=== PATIENT | female | born 1990 | race Caucasian/White ===

== ENCOUNTER 2022-05-20 19:04 | Emergency (ER) | payer MEDICAID ==
[~2022-05-20] VITALS: Ht 165.1 cm; Wt 80.0 kg
[2022-05-20 19:10] VITALS: BP 133/95
[2022-05-20] MEDS ORDERED: IBUPROFEN 400MG TABLET PO ONE (20:00)
[2022-05-20] MEDS ORDERED: IBUPROFEN 400MG TABLET PO NR (20:00)
[2022-05-20] MEDS ORDERED: IBUP-2028 MT (20:51)
== END 2022-05-20 21:46 | disposition home or self-care (01) ==
LOC: ER 19:04
DX: M25.572 Pain in left ankle and joints of left foot (principal); M79.672 Pain in left foot
CPT/HCPCS: 29515; 73610; 73630; 99284